=== PATIENT | female | born 1960 | race Caucasian/White ===

== ENCOUNTER 2018-10-04 01:09 | Emergency (ER) | payer OTHER ==
[~2018-10-04] VITALS: Ht 160 cm; Wt 117.4 kg
[~2018-10-04 01:09] MED LIST: DIGO125T PO; METO-448 PO; RIVA20TA5 PO
[2018-10-04 01:16] VITALS: BP 163/91; PULSE 73; RESP 16; Ht 160 cm; Wt 117.4 kg
--- NOTE | 2018-10-04 04:10 | ERD ---
ER Documentation Chief Complaint Chief Complaint Pt reports she scratched a varicose vein and it is bleeding HPI This is a 58-year-old female who presents here in the emergency department with complaints of right lower extremity bleeding after accidentally scratching her varicose veins. Patient stated that she applied pressure and rapid with a tape. No active bleeding on arrival here in emergency department no calf tenderness. Patient stated that she takes Lopressor, diltiazem, aspirin 81 mg daily. Patient stated that she stopped taking Xarelto 2 years ago. Denies chest pain, difficulty breathing when lying flat, carl pain, recent long travel, numbness or tingling sensation, difficulty walking. ROS All systems reviewed and are negative except as per history of present illness. Medications Home Meds Active Scripts Rivaroxaban* (Xarelto*) 20 Mg Tablet, 20 MG PO WITH DINNER for 30 Days, TAB 3 Refills Prov:PEGGYTienSamanthaMELVINAZAHIRA Bowman 04/03/15 Digoxin* (Digitek*) 0.125 Mg Tab, 0.125 MG PO DAILY@13 for 30 Days, 3 Refills Prov:PEGGY,NSamanthaVELMA Bowman 04/03/15 Metoprolol Tartrate* (Lopressor*) 25 Mg Tab, 25 MG PO BID for 30 Days, TAB 3 Refills Prov:PEGGYTienCAM Bowman 04/03/15 Allergies Allergies: Coded Allergies: No Known Allergy (Unverified , 04/02/15) PMhx/Soc History of Surgery: Yes () Anesthesia Reaction: No Hx Neurological Disorder: No Hx Respiratory Disorders: No Hx Cardiac Disorders: Yes (AFib,HTN) Hx Psychiatric Problems: No Hx Miscellaneous Medical Probl: No Hx Alcohol Use: Yes (Social) Hx Substance Use: No Hx Tobacco Use: No Smoking Status: Never smoker Physical Exam Vitals Vital Signs Date Temp Pulse Resp B/P (MAP) Pulse Ox O2 O2 Flow FiO2 Time Delivery Rate 10/04/18 98.3 73 16 163/91 98 01:16 (115) Physical Exam Const: No acute distress Head: Atraumatic Eyes: Normal Conjunctiva ENT: Normal External Ears, Nose and Mouth. Neck: Full range of motion. No meningismus. Resp: Clear to auscultation bilaterally Cardio: Regular rate and rhythm, no murmurs Abd: Soft, non tender, non distended. Normal bowel sounds Skin: No petechiae or rashes. Back: No midline or flank tenderness. Ext: No cyanosis, or edema. Right lower extremity: No active bleeding to site. Right pedal pulses within normal limits. No neurovascular deficits. No calf tenderness. Ambulatory with steady gait. Neur: Awake and alert Psych: Normal Mood and Affect Procedures/MDM Diagnostic tests: Clinical exam. Patient is strongly refusing diagnostic tests. Treatment: Pressure dressing with Kerlix. Re-evaluation: No active bleeding. Differential diagnosis I have low suspicion for hemorrhage, DVT. Final diagnosis: Bleeding that is secondary to scratch/irritation that has resolved. Prescription: Strongly advised patient to stop the aspirin until she is seen by her primary care physician. Follow-up with PCP in the next 24-48 hours. Come back here in the emergency department for any new symptoms or any worsening symptoms. All questions and concerns were answered. Patient and family members verbalized understanding and agreed with plan of care. Hemodynamically stable on discharge. Departure Diagnosis: Primary Impression: Peripheral vascular disease Condition: Stable Additional Instructions: Follow-up with PCP in the next 24-48 hours. Come back here in the emergency department for any new symptoms or any worsening symptoms. GUILLE COX Oct 04, 2018 04:10
== END 2018-10-04 04:37 | disposition home or self-care (01) ==
LOC: FTE 01:09
DX: I73.9 Peripheral vascular disease, unspecified (principal); I10 Essential (primary) hypertension
CPT/HCPCS: 99283

== ENCOUNTER 2018-12-28 11:01 | Emergency (ER) | payer OTHER ==
[~2018-12-28] VITALS: Ht 157.5 cm; Wt 114.0 kg
[2018-12-28 11:06] VITALS: BP 152/68; PULSE 86; RESP 18; Ht 157.5 cm; Wt 114.0 kg
[2018-12-28] MEDS ORDERED: ENOXAPARIN 100 MG/ML SYG SC ONE (12:30)
[2018-12-28] MEDS ORDERED: NICARDipine HCL 30 MG CAPSULE PO ONE (12:30)
--- NOTE | 2018-12-28 14:04 | ERD ---
ER Documentation Chief Complaint Chief Complaint palpitations since yesterday, hx a-fib HPI This is a 58-year-old female who has a history of atrial fibrillation and she states she is having palpitations and feels like she is in A. fib again. She has no chest pain or difficulty breathing. No recent illness or fever. She says she is tried anticoagulants before such as Eliquis etc. however they make her bleed excessively so she is only on aspirin. She has had no focal neurological complaints. She takes a beta-breezy and calcium channel breezy for rate control/A. fib ROS All systems reviewed and are negative except as per history of present illness. Medications Home Meds Active Scripts Diltiazem Hcl* (Cardizem CD*) 180 Mg Cap.sr.24h, 180 MG PO BID, #60 CAP Prov:OZ RUELAS DO 12/28/18 Metoprolol Tartrate* (Lopressor*) 25 Mg Tab, 25 MG PO BID for 30 Days, TAB 3 Refills Prov:ALICIA WOODS 04/03/15 Reported Medications Aspirin* (Aspirin* EC) 81 Mg Tablet.dr, 81 MG PO DAILY, TAB 12/28/18 Cephalexin* (Cephalexin*) 500 Mg Capsule, 500 MG PO Q6, #28 CAP 12/28/18 Diltiazem Hcl (DILTIAZEM 24HR CD) 180 Mg Cap.er.24h, 1 CAP ORAL DAILY 12/28/18 Discontinued Scripts Rivaroxaban* (Xarelto*) 20 Mg Tablet, 20 MG PO WITH DINNER for 30 Days, TAB 3 Refills Prov:ALICIA WOODS 04/03/15 Digoxin* (Digitek*) 0.125 Mg Tab, 0.125 MG PO DAILY@13 for 30 Days, 3 Refills Prov:ALICIA WOODS 04/03/15 Allergies Allergies: Coded Allergies: No Known Allergy (Unverified , 12/28/18) PMhx/Soc History of Surgery: Yes () Anesthesia Reaction: No Hx Neurological Disorder: No Hx Respiratory Disorders: No Hx Cardiac Disorders: Yes (AFib,HTN) Hx Psychiatric Problems: No Hx Miscellaneous Medical Probl: No Hx Alcohol Use: Yes (Social) Hx Substance Use: No Hx Tobacco Use: No FmHx Family History: No coronary disease Physical Exam Vitals Vital Signs Date Temp Pulse Resp B/P (MAP) Pulse Ox O2 O2 Flow FiO2 Time Delivery Rate 12/28/18 Nasal 2 13:06 Cannula 12/28/18 98.0 86 18 152/68 98 11:06 (96) Physical Exam Const: Well-developed, well-nourished Head: Atraumatic, normocephalic Eyes: Normal Conjunctiva, PERRLA, EOMI, normal sclera, no nystagmus ENT: Normal External Ears, Nose and Mouth, moist mucus membranes. Neck: Full range of motion. No meningismus, no lymphadenopathy. Resp: Clear to auscultation bilaterally, no wheezing, rhonchi, rales Cardio: Irregular rate and rhythm no murmurs, S1 S2 present] Abd: Soft, non tender x 4, non distended. Normal bowel sounds, no guarding or rebound, no pulsitile abdominal masses or bruits Skin: No petechiae or rashes, no ecchymosis , no maculopapular rash Back: No midline or flank tenderness Ext: No cyanosis, or edema, FROM x 4, normal inspection, neurovascularly intact x 4 Neur: Awake and alert, STR 5/5 x 4, sensation intact x 4, no focal findings, cerebellum intact Psych: Normal Mood and Affect Result Diagram: 12/28/18 1214 12/28/18 1214 Results 24 hrs Laboratory Tests Test 12/28/18 12:14 White Blood Count 8.7 10^3/ul Red Blood Count 4.98 10^6/ul Hemoglobin 14.8 g/dl Hematocrit 43.9 % Mean Corpuscular Volume 88.2 fl Mean Corpuscular Hemoglobin 29.7 pg Mean Corpuscular Hemoglobin Concent 33.7 g/dl Red Cell Distribution Width 13.2 % Platelet Count 262 10^3/UL Mean Platelet Volume 10.2 fl Immature Granulocytes % 0.500 % Neutrophils % 65.0 % Lymphocytes % 26.0 % Monocytes % 5.5 % Eosinophils % 1.8 % Basophils % 1.2 % Nucleated Red Blood Cells % 0.0 /100WBC Immature Granulocytes # 0.040 10^3/ul Neutrophils # 5.6 10^3/ul Lymphocytes # 2.3 10^3/ul Monocytes # 0.5 10^3/ul Eosinophils # 0.2 10^3/ul Basophils # 0.1 10^3/ul Nucleated Red Blood Cells # 0.0 10^3/ul Prothrombin Time 14.4 Sec Prothrombin Time Ratio 1.1 INR International Normalized Ratio 1.11 Activated Partial Thromboplast Time 25.0 Sec Sodium Level 140 mmol/L Potassium Level 4.8 mmol/L Chloride Level 108 mmol/L Carbon Dioxide Level 22 mmol/L Anion Gap 10 Blood Urea Nitrogen 17 mg/dl Creatinine 0.84 mg/dl Est Glomerular Filtrat Rate mL/min > 60 mL/min Glucose Level 169 mg/dl Calcium Level 10.8 mg/dl Total Bilirubin 0.5 mg/dl Direct Bilirubin 0.00 mg/dl Indirect Bilirubin 0.5 mg/dl Aspartate Amino Transf (AST/SGOT) 66 IU/L Alanine Aminotransferase (ALT/SGPT) 44 IU/L Alkaline Phosphatase 65 IU/L Troponin I < 0.012 ng/ml Total Protein 7.9 g/dl Albumin 4.3 g/dl Globulin 3.60 g/dl Albumin/Globulin Ratio 1.19 Current Medications Medications Dose Sig/Sofia Start Time Status Last (Trade) Ordered Route PRN Stop Time Admin Dose Reason Admin Enoxaparin 115 mg ONCE ONCE 12/28/18 DC 12/28/18 Sodium SC 12:30 13:15 (Lovenox) 12/28/18 12:31 Nicardipine 30 mg ONCE ONCE 12/28/18 DC HCl PO 12:30 (Cardene) 12/28/18 12:31 Procedures/MDM Patient: CRISTIANA WELLER : 1960 Age: 58 Sex: F MR #: [id number] DOS: 12/28/18 1205 Ordering MD: OZ RUELAS DO Location: E/R Room/Bed: PROCEDURE: XR Chest. CLINICAL INDICATION: chest pain TECHNIQUE: Single frontal view of the chest was obtained COMPARISON: CR CHEST 04/02/2015 FINDINGS: The heart and mediastinum are within normal limits. The lungs are clear. There is mild elevation of the right diaphragm. There is no pleural effusion or pneumothorax. RPTAT: AA IMPRESSION: No acute disease. .Eldon Nick, MD, Date Time Electronically viewed and signed by .Eldon Romero MD, MD on 12/28/2018 12:40 .S/ CC: OZ RUELAS DO [id number] EKG: Rate/Rhythm: Atrial fibrillation heart rate 94 QRS, ST, QT: NORMAL [place], QRS, QT] Impression: Atrial fibrillation Patient tells me she currently takes aspirin, 180 mg of diltiazem, 25 mg of metoprolol twice daily Spoke with Dr. Vega of cardiology. Advised me to have her take 180 of her diltiazem twice daily instead of daily and to continue her metoprolol. Her heart rate is under 110 which is considered control. We will see her in the office in 1 or 2 days for follow-up. I discussed this with the patient. Departure Diagnosis: Primary Impression: Atrial fibrillation Atrial fibrillation type: persistent Qualified Codes: I48.1 - Persistent atrial fibrillation Additional Impression: Palpitations Condition: Stable OZ RUELAS DO December 28, 2018 14:04
[2018-12-28] MEDS ORDERED: ASPI-817 PO (14:18)
[2018-12-28] MEDS ORDERED: CEPH500C PO (14:18)
[2018-12-28] MEDS ORDERED: DILT180C81 ORAL (14:18)
[2018-12-28] MEDS ORDERED: DILT180C72 PO (14:25)
== END 2018-12-28 15:46 | disposition home or self-care (01) ==
LOC: E/R 11:01
DX: I48.1 Persistent atrial fibrillation (principal); I10 Essential (primary) hypertension; Z79.82 Long term (current) use of aspirin; Z79.01 Long term (current) use of anticoagulants
CPT/HCPCS: 36415; 71045; 80053; 84484; 85025; 85610; 85730; 93005; 96372; 99285; J1650